=== PATIENT | male | born 1995 | race African-American/Black ===

== ENCOUNTER 2017-04-17 08:02 | Emergency (ER) | payer MEDICAID ==
[~2017-04-17] VITALS: Ht 182.9 cm; Wt 95.9 kg
[2017-04-17] MEDS ORDERED: IBUPROFEN 600 MG TABLET PO ONE (08:30)
[2017-04-17 09:26] VITALS: BP 121/70
== END 2017-04-17 09:54 | disposition home or self-care (01) ==
LOC: EMS 08:05
DX: S90.31XA Contusion of right foot, initial encounter (principal); J45.909 Unspecified asthma, uncomplicated; W22.8XXA Striking against or struck by other objects, initial encounter; Y93.89 Activity, other specified; Y92.89 Other specified places as the place of occurrence of the external cause; Y99.8 Other external cause status
CPT/HCPCS: 81025; 99284

== ENCOUNTER 2018-10-04 08:27 | Emergency (ER) | payer MEDICAID ==
[~2018-10-04] VITALS: Ht 185.4 cm; Wt 100.0 kg
[2018-10-04 10:24] VITALS: BP 142/80
== END 2018-10-04 10:29 | disposition home or self-care (01) ==
LOC: EMS 08:28
DX: S63.502A Unspecified sprain of left wrist, initial encounter (principal); S63.92XA Sprain of unspecified part of left wrist and hand, initial encounter; J45.909 Unspecified asthma, uncomplicated; W18.39XA Other fall on same level, initial encounter; Y93.89 Activity, other specified; Y92.89 Other specified places as the place of occurrence of the external cause; Y99.8 Other external cause status